=== PATIENT | female | born 1955 | race Caucasian/White ===

== ENCOUNTER 2021-05-02 11:18 | Emergency (ER) | payer MEDICARE, OTHER ==
[~2021-05-02 11:18] MED LIST: BACTRIM DS TAB1 EACH PO; ECOTRIN81 MG PO; EFFIENT10 MG PO; ELIQUIS2.5 MG PO; LIPITOR TAB 2020 MG PO; NORCO 5-325 TA1 EACH PO; PACERONE200 MG PO; TOPROL XL25 MG PO; TORADOL 10 MG T10 MG PO; VENTOLIN HFA 66.7 GM INH
[2021-05-02 13:27] LABS: HEMOGLOBIN 12.8 gm/dl (12.3-15.3); RED BLOOD COUNT 4.35 M/UL (4.00-5.10); WHITE BLOOD COUNT 9.5 K/UL (4.5-11.0)
[2021-05-02 13:50] LABS: BUN/CREATININE RATIO 43 (0-10)
[2021-05-02] MEDS ORDERED: ZOFRAN ODT 4 MG4 MG PO (17:47)
== END 2021-05-02 18:15 | disposition home or self-care (01) ==
LOC: ER1 11:18
PROVIDERS: Emergency Medicine
DX: R63.8 Other symptoms and signs concerning food and fluid intake (principal); E86.0 Dehydration; I11.9 Hypertensive heart disease without heart failure; I48.91 Unspecified atrial fibrillation
CPT/HCPCS: 71045; 80053; 81001; 82550; 82553; 83605; 83690; 84484; 85025; 87040; 93005; 99284; J7030; Q9967

== ENCOUNTER → 2021-12-19 | Outpatient (CLI) | payer MEDICARE, OTHER ==
[~2021-12-19] MED LIST changes: +ZOFRAN ODT 4 MG4 MG PO
== END ==
LOC: KOH-I 14:26
DX: M54.2 Cervicalgia (principal); M47.892 Other spondylosis, cervical region
CPT/HCPCS: 72040

== ENCOUNTER → 2022-06-21 | Outpatient (CLI) | payer MEDICARE, OTHER | LOC: EXRD 13:10 | DX: R19.00 Intra-abdominal and pelvic swelling, mass and lump, unspecified site (principal); Z90.710 Acquired absence of both cervix and uterus | CPT/HCPCS: 76857 ==